=== PATIENT | male | born 1955 | race African-American/Black ===

== ENCOUNTER 2020-01-12 15:42 | Emergency (ER) | payer OTHER ==
[~2020-01-12] VITALS: Ht 172.7 cm; Wt 92.1 kg
[2020-01-12 16:14] VITALS: BP 121/71
--- NOTE | 2020-01-12 16:27 | NUR ---
64 YEAR OLD MALE COMPLAINS OF BILATERAL LEG SWELLING AND 10/10 ACHING PAIN X YESTERDAY. PT ALSO STATES THAT THEY HAVE PAIN, AND THAT SWELLING HAS NOT OCCURED BEFORE. PT STATES HE IS UNDERGOING RADIATION THERAPY FOR PROSTATE CANCER TREATMENT. PT COMPLAINS OF DIFFICULTY WALKING, LIMITED ROM. PEDAL PULSE +3, CAP REFILL <3 SEC. PT ALSO COMPLAINS OF COUGH X 1 WEEK. PT AOX4, BREATHING EVEN AND UNLABORED, SKIN WARM AND DRY. BED IN LOWEST POSITION, LOCKED, BED RAIL UPX1. PMH - PROSTATE CANCER ALLERGIES - NKA
[2020-01-12] MEDS ORDERED: HYDROcodone/APAP 5/325 MG 1 TAB TAB PO ONE (16:40)
[2020-01-12 17:40] LABS: HEMATOCRIT 31.7 % (36-52); HEMOGLOBIN 10.2 g/dL (12.0-18.0); MEAN CORPUSCULAR HEMOGLOBIN 26 pg (27-31); MEAN CORPUSCULAR HGB CONC 32 g/dL (33-37); MEAN CORPUSCULAR VOLUME 79.6 fL (80-94); PLATELET COUNT (AUTO) 269 K/uL (140-450); RED BLOOD CELL COUNT(AUTO) 3.98 MIL/uL (4.20-6.10); RED CELL DISTRIBUTION WIDTH 19.1 % (11.6-13.7); WHITE BLOOD COUNT (AUTO) 3.3 K/uL (4.8-10.8)
[2020-01-12] MEDS ORDERED: FUROSEMIDE 40 MG TAB PO ONE (17:40)
[2020-01-12 18:00] LABS: PROTHROMBIN TIME 10.4 secs (10.8-13.4)
[2020-01-12 18:10] LABS: ALBUMIN 3.6 g/dL (3.4-5.0); CARBON DIOXIDE 28.5 mmol/L (21-32); CREATININE 1.2 mg/dL (0.6-1.3); POTASSIUM 3.5 mmol/L (3.5-5.1); TOTAL BILIRUBIN 0.6 mg/dL (0.0-1.0)
[2020-01-12 18:14] LABS: EOSINOPHILS % (MANUAL) 7 % (0-4); LYMPHOCYTES % (MANUAL) 32 % (20-46); MONOCYTES % (MANUAL) 21 % (5-12)
[2020-01-12 18:15] LABS: PROMYELOCYTES % 1 % (0-0)
[2020-01-12] MEDS ORDERED: POTASSIUM CHLORIDE 10 MEQ TABER PO ONE (18:25)
[2020-01-12] MEDS ORDERED: CARV6.25 PO (18:33)
[2020-01-12] MEDS ORDERED: ACET-9529 PO (18:33)
[2020-01-12] MEDS ORDERED: PROC-62 PO (18:33)
[2020-01-12] MEDS ORDERED: ONDA4TAB PO (18:33)
[2020-01-12] MEDS ORDERED: LISI2.5T12 PO (18:33)
--- NOTE | 2020-01-12 19:04 | NUR ---
PT ALERT AND AWAKE, BREATHING EVEN AND UNLABORED. NO DISTRESS NOTED
--- NOTE | 2020-01-12 19:20 | NUR ---
Patient discharged with v/s stable. Written and verbal after care instructions about heart failure given and explained. Patient alert, oriented and verbalized understanding of instructions. Ambulatory with steady gait. All questions addressed prior to discharge. ID band removed. Patient advised to follow up with PMD. Rx of potassium and lasix given. Patient educated on indication of medication including possible reaction and side effects. Opportunity to ask questions provided and answered.
[2020-01-12 19:21] VITALS: BP 123/75
== END 2020-01-12 19:20 | disposition home or self-care (01) ==
LOC: MED 15:42 → EDBD 15:42 → MED 19:20
DX: R60.0 Localized edema (principal); I50.9 Heart failure, unspecified; Z85.46 Personal history of malignant neoplasm of prostate; Z79.899 Other long term (current) drug therapy
CPT/HCPCS: 36415; 71045; 80053; 83880; 85025; 85610; 85730; 93970; 99285

== ENCOUNTER 2020-03-02 02:10 | Emergency (ER) | payer OTHER ==
[~2020-03-02 02:10] MED LIST: ACET-9529 PO; CARV6.25 PO; LISI2.5T12 PO; ONDA4TAB PO; PROC-62 PO
--- NOTE | 2020-03-02 02:20 | NUR ---
PT CALLED IN LOBBY AND OUTSIDE, NO ANSWER
--- NOTE | 2020-03-02 02:30 | NUR ---
PT CALLED IN LOBBY AND OUTSIDE FOR SECOND TIME, NO ANSWER
--- NOTE | 2020-03-02 02:45 | NUR ---
PT CALLED IN LOBBY AND OUTSIDE FOR THRID TIME, NO ANSWER. PATIENT LEFT WITHOUT BEING SEEN BY DR. COHN. NO FURTHER CARE PROVIDED FOR PATIENT.
== END 2020-03-02 02:25 | disposition left against medical advice (07) ==
LOC: MED 02:10
DX: Z53.21 Procedure and treatment not carried out due to patient leaving prior to being seen by health care provider (principal)

== ENCOUNTER 2020-08-04 15:06 | Emergency (ER) | payer OTHER ==
[~2020-08-04] VITALS: Ht 175.3 cm; Wt 86.2 kg
[2020-08-04 15:10] VITALS: BP 127/79
[2020-08-04] MEDS ORDERED: ASPIRIN 325 MG TAB PO ONE (15:45)
[2020-08-04 16:00] LABS: BASOPHILS # (AUTO) 0.1 K/uL (0.00-0.22); BASOPHILS % (AUTO) 0.9 % (0.0-2.0); EOSINOPHILS # (AUTO) 0.7 K/uL (0-0.4); EOSINOPHILS % (AUTO) 5.2 % (0.0-4.0); HEMATOCRIT 30.9 % (36-52); HEMOGLOBIN 10.1 g/dL (12.0-18.0); LYMPHOCYTES # (AUTO) 1.4 K/uL (2.0-11.5); LYMPHOCYTES % (AUTO) 10.1 % (20.5-51.1); MEAN CORPUSCULAR HEMOGLOBIN 26 pg (27-31); MEAN CORPUSCULAR HGB CONC 33 g/dL (33-37); MEAN CORPUSCULAR VOLUME 81.2 fL (80-94); MONOCYTES # (AUTO) 0.9 K/uL (0.8-1.0); MONOCYTES % (AUTO) 6.6 % (1.7-9.3); NEUTROPHILS # (AUTO) 10.6 K/uL (1.8-7.7); NEUTROPHILS % (AUTO) 77.2 % (42.2-75.2); PLATELET COUNT (AUTO) 172 K/uL (140-450); RED CELL DISTRIBUTION WIDTH 18.1 % (11.6-13.7); WHITE BLOOD COUNT (AUTO) 13.8 K/uL (4.8-10.8)
[2020-08-04 16:23] LABS: PROTHROMBIN TIME 10.3 secs (10.8-13.4)
[2020-08-04] MEDS ORDERED: NITROGLYCERIN 0.4 MG TAB SL ONE (16:30)
[2020-08-04 16:31] LABS: ALBUMIN 3.5 g/dL (3.4-5.0); ANION GAP 17.1 (8-16); CARBON DIOXIDE 23.2 mmol/L (21-32); CREATININE 0.9 mg/dL (0.6-1.3); POTASSIUM 4.3 mmol/L (3.5-5.1); TOTAL BILIRUBIN 0.6 mg/dL (0.0-1.0)
[2020-08-04 17:11] LABS: CREATINE KINASE MB 0.9 ng/mL (0-3.6)
[2020-08-04 17:29] VITALS: BP 130/75
== END 2020-08-04 17:14 | disposition short-term general hospital (02) ==
LOC: MED 15:06
DX: R07.9 Chest pain, unspecified (principal); R05 Cough; R11.10 Vomiting, unspecified; I10 Essential (primary) hypertension; Z79.899 Other long term (current) drug therapy; Z85.46 Personal history of malignant neoplasm of prostate
CPT/HCPCS: 36415; 71045; 80053; 82550; 82553; 83880; 84484; 85025; 85610; 85730; 93005; 99285

== ENCOUNTER 2021-11-26 08:35 | Emergency (ER) | payer OTHER ==
[~2021-11-26] VITALS: Ht 167.6 cm; Wt 63.5 kg
[2021-11-26 08:37] VITALS: BP 144/80
--- NOTE | 2021-11-26 08:45 | NUR ---
Patient ambulated to bed 11.
[2021-11-26] MEDS ORDERED: KETOROLAC 15 MG/ML VIAL IM ONE (09:25)
--- NOTE | 2021-11-26 09:42 | NUR ---
Dr. Short at bedside evaluating patient.
--- NOTE | 2021-11-26 10:30 | NUR ---
Patient resting in bed, A/Ox4, chest rise and fall symmetrical, no s/s of distress.
[2021-11-26 11:08] LABS: BASOPHILS % (AUTO) 1.3 % (0.0-2.0); EOSINOPHILS # (AUTO) 0.2 K/uL (0-0.4); EOSINOPHILS % (AUTO) 4.9 % (0.0-4.0); HEMATOCRIT 30.2 % (36-52); HEMOGLOBIN 9.9 g/dL (12.0-18.0); LYMPHOCYTES # (AUTO) 0.9 K/uL (2.0-11.5); LYMPHOCYTES % (AUTO) 23.6 % (20.5-51.1); MEAN CORPUSCULAR HEMOGLOBIN 31 pg (27-31); MEAN CORPUSCULAR HGB CONC 33 g/dL (33-37); MEAN CORPUSCULAR VOLUME 94.8 fL (80-94); MONOCYTES # (AUTO) 0.5 K/uL (0.8-1.0); MONOCYTES % (AUTO) 13.5 % (1.7-9.3); NEUTROPHILS # (AUTO) 2.3 K/uL (1.8-7.7); NEUTROPHILS % (AUTO) 56.7 % (42.2-75.2); PLATELET COUNT (AUTO) 131 K/uL (140-450); RED BLOOD CELL COUNT(AUTO) 3.18 MIL/uL (4.20-6.10); RED CELL DISTRIBUTION WIDTH 15.9 % (11.6-13.7)
--- NOTE | 2021-11-26 11:10 | NUR ---
Patient resting in bed, A/Ox4, chest rise and fall symmetrical, no s/s of distress.
[2021-11-26 11:43] LABS: ALBUMIN 2.7 g/dL (3.4-5.0); ANION GAP 12.6 (8-16); CARBON DIOXIDE 24.4 mmol/L (21-32); CREATININE 0.8 mg/dL (0.6-1.3); TOTAL BILIRUBIN 1.1 mg/dL (0.0-1.0)
[2021-11-26] MEDS ORDERED: MORPHINE SULFATE 4 MG/ML SYR IVP ONE (12:05)
--- NOTE | 2021-11-26 12:05 | NUR ---
Patient resting in bed, A/Ox4, chest rise and fall symmetrical, no s/s of distress.
--- NOTE | 2021-11-26 13:07 | NUR ---
Patient resting in bed, A/Ox4, chest rise and fall symmetrical, no s/s of distress.
[2021-11-26] MEDS ORDERED: ONDA-188 PO (14:12)
[2021-11-26] MEDS ORDERED: MIRABULK PO (14:13)
[2021-11-26 14:56] VITALS: BP 129/74
--- NOTE | 2021-11-26 14:58 | NUR ---
Patient discharged with v/s stable. Written and verbal after care instructions given and explained. Patient alert, oriented and verbalized understanding of instructions. Ambulatory with steady gait. All questions addressed prior to discharge. ID band removed. Patient advised to follow up with PMD. Rx and radiology CD given to patient. Patient educated on indication of medication including possible reaction and side effects. Opportunity to ask questions provided and answered.
== END 2021-11-26 14:58 | disposition home or self-care (01) ==
LOC: MED 08:35
DX: K59.00 Constipation, unspecified (principal); D64.9 Anemia, unspecified; I10 Essential (primary) hypertension; Z85.46 Personal history of malignant neoplasm of prostate; Z79.899 Other long term (current) drug therapy
CPT/HCPCS: 36415; 71045; 74177; 80053; 83690; 84484; 85025; 96372; 96374; 99285; J1885; J2270; Q9967

== ENCOUNTER 2021-11-29 09:02 | Emergency (ER) | payer OTHER ==
[~2021-11-29] VITALS: Ht 172.7 cm; Wt 63.0 kg
[~2021-11-29 09:02] MED LIST changes: +MIRABULK PO; +ONDA-188 PO
--- NOTE | 2021-11-29 09:09 | NUR ---
W/C ASSISTED TO BED 11
[2021-11-29 09:20] VITALS: BP 114/67
[2021-11-29] MEDS ORDERED: cefTRIAXone 1,000 MG in DEXT 5% MINI-BAG PLUS 50 ML IV ONE (09:30)
[2021-11-29] MEDS ORDERED: NACL 0.9% 500 ML IV SCH (09:30)
[2021-11-29] MEDS ORDERED: cefTRIAXone 1,000 MG VIAL ONE (09:45)
--- NOTE | 2021-11-29 10:05 | NUR ---
PT TAKEN TO CT VIA [facility]ON
[2021-11-29 10:10] LABS: BASOPHILS % (AUTO) 0.3 % (0.0-2.0); EOSINOPHILS # (AUTO) 0.1 K/uL (0-0.4); EOSINOPHILS % (AUTO) 2.1 % (0.0-4.0); HEMATOCRIT 27.4 % (36-52); HEMOGLOBIN 9.2 g/dL (12.0-18.0); LYMPHOCYTES # (AUTO) 0.7 K/uL (2.0-11.5); LYMPHOCYTES % (AUTO) 13.9 % (20.5-51.1); MEAN CORPUSCULAR HEMOGLOBIN 32 pg (27-31); MEAN CORPUSCULAR HGB CONC 34 g/dL (33-37); MEAN CORPUSCULAR VOLUME 94.9 fL (80-94); MONOCYTES # (AUTO) 0.5 K/uL (0.8-1.0); MONOCYTES % (AUTO) 9.2 % (1.7-9.3); NEUTROPHILS # (AUTO) 3.8 K/uL (1.8-7.7); NEUTROPHILS % (AUTO) 74.5 % (42.2-75.2); PLATELET COUNT (AUTO) 127 K/uL (140-450); RED BLOOD CELL COUNT(AUTO) 2.89 MIL/uL (4.20-6.10); RED CELL DISTRIBUTION WIDTH 15.4 % (11.6-13.7); WHITE BLOOD COUNT (AUTO) 5.2 K/uL (4.8-10.8)
[2021-11-29 10:21] LABS: ALBUMIN 2.7 g/dL (3.4-5.0); ANION GAP 15.2 (8-16); CARBON DIOXIDE 24.8 mmol/L (21-32); TOTAL BILIRUBIN 1.2 mg/dL (0.0-1.0)
[2021-11-29] MEDS ORDERED: ATOR20TA40 PO (10:25)
[2021-11-29] MEDS ORDERED: MEGE40TA17 PO (10:25)
[2021-11-29] MEDS ORDERED: FURO40TA9 PO (10:25)
--- NOTE | 2021-11-29 10:25 | NUR ---
DR COHN AT BEDSIDE FOR REEVAL
--- NOTE | 2021-11-29 11:14 | NUR ---
PT SISTER SHASHANK CALLED TO SPEAK TO DR COHN
--- NOTE | 2021-11-29 11:18 | NUR ---
DR COHN SPEAKING TO SISTER
[2021-11-29 11:20] VITALS: BP 118/71
[2021-11-29 11:21] LABS: APPEARANCE,URINE CLEAR (CLEAR); BILIRUBIN,URINE 1+ (NEGATIVE); BLOOD, URINE NEGATIVE (NEGATIVE); COLOR,URINE ORANGE (YELLOW); LEUKOCYTE ESTERASE ,URINE NEGATIVE (NEGATIVE); NITRITE, URINE NEGATIVE (NEGATIVE); UGLUCOSE TRACE (NEGATIVE)
--- NOTE | 2021-11-29 12:00 | NUR ---
PT RESTING COMFORTABLY IN BED
--- NOTE | 2021-11-29 12:41 | NUR ---
Patient to be transferred to [facility]. Is being transferred due to HIGHER LEVEL OF CARE. Receiving facility has accepting physician and available space. ER physician has signed transfer form. Patient or responsible democrat has agreed to transfer and signed form. Patient belongings inventoried and will be sent with patient. Copy of nursing notes, lab reports, EKG, Physicians Orders and X-rays to be sent with patient. Report called to MÓNICA MCGEE at receiving facility. [facility] ambulance service has been called for transfer. ETA is 20-30MIN.
== END 2021-11-29 12:41 | disposition short-term general hospital (02) ==
LOC: MED 09:02
DX: S06.4X0A Epidural hemorrhage without loss of consciousness, initial encounter (principal); Z20.822 Contact with and (suspected) exposure to COVID-19; I10 Essential (primary) hypertension; Z85.46 Personal history of malignant neoplasm of prostate; X58.XXXA Exposure to other specified factors, initial encounter; Y93.89 Activity, other specified; Y92.89 Other specified places as the place of occurrence of the external cause; Y99.8 Other external cause status
CPT/HCPCS: 36415; 70450; 71045; 80053; 81003; 82550; 83605; 83880; 84484; 85025; 87040; 87086; 87426; 93005; 96365; 99285; J0696